=== PATIENT | male | born 1965 | race Caucasian/White ===

== ENCOUNTER 2021-09-07 09:01 | Observation (INO) | payer OTHER, SELFPAY ==
[2021-08-29 13:31] VITALS: BMI 40.4
[2021-09-05] VITALS (15 sets, daily range): BP systolic 111–166; BP diastolic 59–101; PULSE 60–96; RESP 10–18; TEMP 36.3–37.3; O2SAT 92–96; BMI 40.4
--- NOTE | 2021-09-05 06:34 | DI.RAD.S_ITS ---
PROCEDURE: XR KNEE LT 1TO2V INDICATIONS: postop prosthesis placement TECHNIQUE: 2 view(s) of the knee acquired. COMPARISON: None. FINDINGS: Bones: Patient is status post knee joint arthroplasty. Hardware components are in expected positions. Visualized bony structures are intact. Soft tissues: Overlying postoperative changes are noted. IMPRESSION: Expected immediate postoperative appearance, status post total left knee arthroplasty. Dictated by: Mendoza Zhang M.D. on 09/05/2021 at 17:12 Approved by: Mendoza Zhang M.D. on 09/05/2021 at 17:12
[2021-09-05] MEDS: VANCOMYCIN 1,000 MG/200 ML PIGGYBACK 200 MG IV (07:06)
[2021-09-05] MEDS: LACTATED RINGERS 1,000 ML 42 ML IV ×2 (07:19→09:59)
[2021-09-05] MEDS: PREGABALIN 75 MG CAPSULE PO (07:30)
[2021-09-05] MEDS: ACETAMINOPHEN 325 MG TABLET 975 MG PO (07:31)
[2021-09-05] MEDS: CELECOXIB 200 MG CAPSULE PO (07:31)
--- NOTE | 2021-09-05 07:37 | SUR.OPER ---
Supine on padded OR bed. Pillow under head, arms secured on padded armboards <90 degree abduction. Safety belt across torso. Non-operative leg secured with tape over blanket over lower leg. Operative leg secured in DeMayo/Miguel/Nathe positioner. Foam padded brace at thigh of operative leg.
--- NOTE | 2021-09-05 07:43 | PM.PREOP ---
Pre-operative Note COVID-19 COVID-19 status: Negative Interval Note History & Physical reviewed/Exam performed by Physician: Yes Changes to H&P: No
--- NOTE | 2021-09-05 07:44 | PM.OP.1 ---
Operative Date/Time/Diagnoses Date of procedure: 09/05/21 Time of procedure: 08:20 Pre-op diagnosis: Left knee posttraumatic osteoarthritis Post-op diagnosis: same Procedure & Clinicians Procedure: Left total knee arthroplasty Same procedure as scheduled: Yes Indications: The patient has had progressively worsening left knee pain with radiographic changes consistent with arthritis. Non-operative management has failed and the patient has requested total knee replacement. The risks, benefits and alternatives to surgery were discussed with the patient prior to proceeding. Risks discussed included, but were not limited to, failure to relieve pain, stiffness, infection, nerve damage, deep venous thrombosis, pulmonary embolism, stroke, coma, heart attack, permanent paralysis and , as well as the potential need for eventual revision of the prosthetic. Surgeon: Venice Weir Switching Clerk: Oneida Pratt Anesthesia Type: General and Spinal Operative Notes Findings: Severe left knee medial compartment osteoarthritis, good bone and adequate stability Closure Type: primary Specimen(s): none sent Prosthetic devices, grafts, tissues, transplants, or devices: [facility] 2 size 7 femur, size 6 tibia, +9 poly, 41 mm patella Estimated Blood Loss (mL): 250 Blood products transfused: none Tourniquet time (min): 35 Procedure in detail: The patient was seen in the pre-operative area, where the patient identified the left knee as the operative site and this was marked with my initials. The patient received pre-operative antibiotics, and was taken to the operating room and placed on the operative table in the supine position. After satisfactory anesthesia, a full time babysitter out was performed. The left leg was encircled with a tourniquet about the proximal thigh, and the leg was prepared from the toes to the tourniquet with ChloroPrep in the usual fashion and draped through sterile drapes. The leg was elevated and exsanguinated with Eschmark bandage and the tourniquet inflated to [250] mmHg pressure. The knee was approached through an approximately 18 cm incision centered over the patella and carried into the knee through a medial parapatellar arthrotomy. Tourniquet was a venous tourniquet and was deflated. A portion of the medial and lateral meniscus was resected. Soft tissue was carefully mobilized around the patella the patella was measured with a caliper. Bone was resected from the patella and the patellar height was reconstituted with up an appropriate sized patellar component. A cover was then placed on the patella. A small amount of additional medial and lateral meniscus was resected. The distal femur was cut at 5?. A [+2] cut was used. It looked like an appropriate distal femoral cut and the cut was made without difficulty. An extramedullary guide was used for the tibial cut. 10 mm was resected off the least affected side. The tibia was prepared. The rotation was assessed. The patient was placed in extension residual medial and lateral meniscus as well as any residual bone was carefully resected. [No] additional tibia was resected. Hemostasis was achieved especially posteriorly. Additional local was injected into the posterior capsule. The extension gap was assessed and additional releases for gap balancing were performed as necessary. It was checked with the gap motor grader rough grade. The femoral component was trial was placed and the notch was finished. The rotation was assessed and the appropriate size femoral guide was placed on the distal femur and finishing cuts were made. Both the balanced resection as as a measured resection were checked 3 degree external rotation measured resection appeared appropriate. There was no evidence of notching. The anterior, posterior and chamfer cuts were then made. The posterior osteophytes and soft tissues were then removed. The posterior capsule was injected with part of a mixture of 60 ml 0.25% Marcaine mixed with 20 ml Exparel for post operative pain control. The remainder of this mixture was injected into the capsule and subcutaneous tissues during cement curing. The tibial and femoral components were then placed and the knee placed through a range of motion. Range of motion was [0-130], with good stability throughout the range. The trials were then removed, and the tibia was finished. The bone was prepared with pulsatile lavage, and dried with a sponge. Cement was applied and the final prosthetics placed. Excess cement was removed during and after cement curing. A brief Betadine soak was performed. After confirming there was no extruded cement posteriorly, the final tibial insert was placed. The knee was copiously irrigated and the tourniquet deflated. Hemostasis was obtained with the Bovie cautery. A drain was placed and brought out superolaterally. The capsule was closed with interrupted nonabsorbable suture. The subcutaneous layer was closed with barbed sutures, and the skin with a running 3-0 V-Lock suture and Surgical glue. An Aquacel Ag dressing was applied and the patient was taken to recovery having tolerated the procedure well. Complications: none Post-operative Condition: stable Disposition: Acute Care Plan for aftercare: The patient will be maintained on a standard total knee replacement protocol with weight bearing as tolerated. The patient will receive aspirin and sequential compression devices for DVT prophylaxis. The patient will be discharged home when safe for the home environment.
[2021-09-05] MEDS: CEFAZOLIN 3 GM IN 0.9 % NACL 100 ML IV (08:11)
[2021-09-05] MEDS: TRANEXAMIC ACID 1,000 MG VIAL 1000 MG INJ ×2 (08:13→10:23)
[2021-09-05] MEDS: BUPIVACAINE 0.25% (PF) VIAL 30 ML INJ (08:43)
[2021-09-05] MEDS: EPINEPHrine 1 MG/ML 0.15 MG INJ (08:46)
[2021-09-05] MEDS: BUPIVACAINE LIPOSOME 266 MG/20 ML VIAL INJ (08:47)
[2021-09-05] MEDS: fentaNYL 100 MCG/2 ML INJ IV ×4 (11:02→11:44)
[2021-09-05] MEDS: HYDROMORPHONE 2 MG INJ IV ×4 (11:21→11:36)
[2021-09-05] MEDS: HYDROMORPHONE 2 MG TABLET PO ×3 (12:02→23:44)
--- NOTE | 2021-09-05 12:20 | SUR.PHASEI ---
Report given to Licha RN , pt transported to [facility] in stable condition
[2021-09-05] MEDS: IBUPROFEN 400 MG TABLET PO ×3 (12:57→20:33)
[2021-09-05] MEDS: HYDROCODONE/ACET 5/325 TABLET 2 TAB PO ×2 (12:57→17:18)
[2021-09-05] MEDS: LACTATED RINGERS 1,000 ML 100 ML IV ×2 (13:02→23:00)
--- NOTE | 2021-09-05 13:58 | PT.IIE ---
Current Diagnoses Unilateral primary osteoarthritis, left knee (09/05/21) Surgery Performed Operation Date: 09/05/21 07:45 Actual Procedures p Total Knee Arthroplasty(Left) - Venice Weir MD Medical History (Last Updated 08/29/21 @ 14:17 by Rosita Ybarra RN) Anxiety Asthma Atrial flutter Depression Diabetes Diabetic neuropathy Diverticulosis Elevated cholesterol Gout HTN (hypertension) SOFÍA on CPAP Osteoarthritis Physical Therapy Inpatient Evaluation/Re-Eval M1 PT/OT-IP Prior Functional Status Start: 09/05/21 15:22 Freq: NEEDED Status: Active Protocol: Document 09/05/21 13:58 AB (Rec: 09/05/21 15:37 AB [email or web address]) Medical Review Prior Functional Status Medical History Reviewed Yes Communication able to make needs known Mobility and Gait pt stated that he is independent with all mobiltiies and ambulation without AD Social History Household Members other Living Arrangements House Number of Floors (Floors) 3 or More Floors Number of Stairs To Enter/Railing? pt lives in a split level house in [place] has 8 steps L rail ascending to get into the entrance and from there pt has to either go up to bedroom level or down to family room: has 8 steps with L rail ascending to get to bedroom level 8 steps R rail descending to get to family room/laundry are Home Environment Standard Height Toilet,Walk in Shower,Tub/Shower Home Equipment Front Wheel Walker,Straight Cane,Crutches,Raised Toilet Seat w/Armrests,Hand Held Shower,Grab Bars In Shower Additional Social History Comment pt stated that his 85y/o dad will stay with him for a few days after surgery but will not be able to give him lift/ assist him physically pt stated that a shower chair will not fit in his walk in shower M2 PT-IP Current Condition Start: 09/05/21 15:22 Freq: NEEDED Status: Active Protocol: Document 09/05/21 13:58 AB (Rec: 09/05/21 15:37 AB [email or web address]) Physical Therapy Current Condition Current Condition Evaluation Date 09/05/21 Treatment Diagnosis s/p L TKA; difficulty in walking Onset Date 09/05/21 Weight Bearing Status Weight Bearing Status Weight Bear as Tolerated Allowed Weight Bearing Amount (enter % LLE WBAT or #) (%) M3 PT-IP Subjective Start: 09/05/21 15:22 Freq: NEEDED Status: Active Protocol: Document 09/05/21 13:58 AB (Rec: 09/05/21 15:37 AB [email or web address]) Subjective Physical Therapy Visit Type Type Initial Evaluation Visit Start Time 13:58 Visit Stop Time 14:48 Total Visit Minutes 50 Number of REPLENISHER Visits 0 Physical Therapy Visit Comments Patient Comments agreeable to do PT Therapy Pain Assessment Pain When Pain Assessed At Rest Pain Present Pain Present Pain Reported Location Left Knee Intensity 6 Scale Used increased to 7/10 with mobility Pain Management Techniques Apply Cold,Distraction, Modification of Treatment,Re- positioning,Timing of Activity with Medications M4 PT-IP Mobility and Gait Start: 09/05/21 15:22 Freq: NEEDED Status: Active Protocol: Document 09/05/21 13:58 AB (Rec: 09/05/21 15:37 [email or web address]) PT-Bed Mobility Assessment Supine to Sit Supine to Sit Standby Assistance PT-Transfer Assessment Sit to and From Stand Sit to and from Stand Minimal Assistance,1 Person Assistance,Use of Upper Extremities Equipment Transfer Assistive Device Gait Belt,Front Wheeled Walker Orthotic/Prosthetic Devices or Brace: No Transfers Transfer Destination Chair Transfer Technique ambulated Transfer Ability Level of Assist Minimal Assistance,1 Person Assistance,Use of Upper Extremities Comments Mobility Comments BP in supine: 131/76. pt completed supine to sit SBA and was able to sit on EOB SBA . c/o slight dizziness and sweatiness. BP checked: 150/ 95. completed sit to stand min A and ambulated in room using FWW min A and cues for L quads activation. agreed to sit on chair. positioned on chair. call light and table placed within reach. Gait Assessment Gait Gait Assistance Required: Minimum Assistance Distance (Feet) 30 Able to Maintain Weight Bearing Status Yes During Gait Assistive Devices Assistive Device Gait Belt,Front Wheeled Walker Orthotic/Prosthetic Devices or Brace: No Gait Deviations General Gait Pattern Antalgic,Decreased Stride Length,Decreased Feet Clearance Factors Limiting Gait Function Factors Limiting Gait Function Decreased Activity Tolerance, Decreased Sensation,Decreased Strength,Limited Range of Motion,Pain Comments Gait Comments pls refer to mobility section for details PT-Balance Assessment Sitting Balance and Reactions Static Sitting Balance Ability Good Dynamic Sitting Balance Ability Good Standing Balance and Reactions Static Standing Balance Ability Fair Dynamic Standing Balance Ability Fair Device Used FWW M5 PT-IP Objective Assessments Start: 09/05/21 15:22 Freq: NEEDED Status: Active Protocol: Document 09/05/21 13:58 AB (Rec: 09/05/21 15:37 AB [email or web address]) Orientation Orientation/Cognition Level of Alertness Alert Orientation Name,Place,Situation Safety Awareness Decreased Safety Awareness Gross Range of Motion Lower Extremity ROM Impairments L knee flexion: ~ 60 deg L knee extension: ~ 10 deg less to 0 Strength Lower Extremity Strength Assessment Left Impaired Knee 3+/5 Sensation Assessment Sensation Gross Sensation Right LE Impaired,Left LE Impaired Sensation Description Numbness Comments Sensation Comments stated that he has chronic neuropathy on B feet Muscle Tone Muscle Tone WNL Yes M6 PT-IP Treatment Start: 09/05/21 15:22 Freq: NEEDED Status: Active Protocol: Document 09/05/21 13:58 AB (Rec: 09/05/21 15:37 [email or web address]) Physical Therapy Treatment Education Education Provided Precautions,Weight Bearing Status,Post-Op Packet,Safety M7 PT-IP Assessment and Plan Start: 09/05/21 15:22 Freq: NEEDED Status: Active Protocol: Document 09/05/21 13:58 AB (Rec: 09/05/21 15:37 [email or web address]) PT Summary Assessment and Plan Potential Rehabilitation Potential Good Status of Condition at Evaluation Evolving Summary Impairments Pain,ROM,Strength,Balance, Coordination,Sensation,Tone, Cognition,Bed Mobility, Transfers,Gait,Activity Tolerance Assessment Summary pt s/p L TKA POD 0 and requires min A with transfers and ambulation. pt will likely progress during hospital stay but has limited assistance at home. will continue to assess progress for safe d/c plan. pt stated that he plans to have homehealth services upon d/c but has not set up for one yet . Goals Bed Mobility Goal Independent Transfer Goal Independent,Front Wheeled Walker Gait Goal Independent,Front Wheel Walker Gait Distance 150 Other Goals up/down 8+8 steps L rail ascending SBA Days to Meet Goals 5 Frequency of Treatment Frequency Of Treatment Twice a Day Treatment Plan Physical Therapy Treatment Plan Bed Mobility Training,Transfer Training,Gait Training, Therapeutic Exercise,Balance Retraining,Post Op Education, Discharge Planning,Hot or Cold Pack,Neuromuscular Re-ed, Coordination Retraining,Manual Therapy Other Recommendations and Next Treatment ambulation, stair climbing Focus Precautions Other Precautions LLE WBAT Recommendations To Nursing Amount of Assist Needed 1 Person Assist Discharge Recommendations PT Discharge Recommendations Home with Assistance,Home Health Transportation Needs at Discharge Private Vehicle
[2021-09-05] MEDS: ACETAMINOPHEN 325 MG TABLET 650 MG PO ×2 (14:44→20:34)
[2021-09-05] MEDS: PREGABALIN 50 MG CAPSULE 200 MG PO ×2 (14:45→20:34)
[2021-09-05] MEDS: CEFAZOLIN 1 GM VIAL 2 GM IV ×2 (15:37→23:45)
[2021-09-05] MEDS: DOCUSATE 100 MG CAPSULE PO (20:33)
[2021-09-05] MEDS: AMLODIPINE 5 MG TABLET 10 MG PO (20:33)
[2021-09-05] MEDS: ASPIRIN EC 81 MG TABLET PO (20:34)
[2021-09-05] MEDS: METFORMIN HCL 500 MG TABLET 1000 MG PO (20:34)
[2021-09-05] MEDS: INSULIN GLARGINE 100 UNIT/ML 3ML PEN 35 UNIT SUBCUT (20:46)
[2021-09-06] VITALS (7 sets, daily range): BP systolic 139–148; BP diastolic 73–98; PULSE 83–106; RESP 14–19; TEMP 36.1–36.9; O2SAT 94–95
[2021-09-06] MEDS: IBUPROFEN 400 MG TABLET PO ×6 (01:00→21:22)
--- NOTE | 2021-09-06 01:25 | PC.NURSE ---
Addendum entered by Dinorah Lutz R.N. 09/06/21 05:24: Medicated earlier with po Dilaudid but pain still not controlled and remains at 8/10 so medicated with Vicodin but could only give 1 tab as otherwise would have been over the maximum allowed Tylenol in a 24h period. Original Note: Patient is alert and oriented with some level of anxiety present. Breath sounds with expiratory wheezes in bilateral upper/middle lobes; RA sat is 94%. Discussed importance of using incentive spirometer and patient verbalizes understanding. Using home CPAP for sleep. HRR. BP trending high intermittently and was 141/69 at time of assessment. Denied nausea. BT present and is passing flatus. Denies dysuria, frequency or urgency with urination; using urinal. Is able to turn himself in bed. Up to bathroom with walker and 1 assist but unable to have BM. Aquacel dressing to left knee is CDI; covered with zahra wrap. Complained of 7/10 knee/thigh/buttock pain and was medicated with Dilaudid earlier and then scheduled Ibuprofen; feels the Vicodin works better so will switch back with next pain medication administration. Has chronic bilateral foot neuropathy left > right. Unable to lift leg off bed tonight but states he was able to lift it when seen earlier by PT. Wearing bilateral calf SCD's. Fall risk score is high and bed alarm is activated.
[2021-09-06] MEDS: HYDROMORPHONE 2 MG TABLET PO ×5 (04:00→23:27)
[2021-09-06] MEDS: HYDROCODONE/ACET 5/325 TABLET 2 TAB PO ×2 (05:14→09:06)
[2021-09-06 05:58] LABS: Hematocrit 31.6 % (41-53); Hemoglobin 10.7 g/dL (13.5-17.5)
[2021-09-06] MEDS: PREGABALIN 50 MG CAPSULE 200 MG PO ×3 (08:11→21:21)
[2021-09-06] MEDS: METFORMIN HCL 500 MG TABLET 1000 MG PO ×2 (08:12→21:21)
[2021-09-06] MEDS: ASPIRIN EC 81 MG TABLET PO ×2 (08:14→21:21)
--- NOTE | 2021-09-06 08:17 | P.DS_ITS ---
History of Present Illness History of Present Illness Date Patient Seen: 09/06/21 Time Patient Seen: 08:17 Chief complaint: Left knee pain status post left TKA Narrative: The patient is complaining of moderate to severe pain this morning. He has been using Dilaudid and [place] in addition to OTC Tylenol and ibuprofen for pain. He denies fevers, chills, night sweats. No new numbness or tingling, other than than his baseline peripheral neuropathy, which is worse in the left as compared to the right. He has had a little nausea and vomiting, but these are mostly resolving. Discharge Providers Provider Discharge Date: 09/06/21 Consults: 09/05/21 06:34 Consult to Anesthesiology Routine Comment: Consulting Provider: Anesthesiologist Reason for consultation: Regional block for post operative pain control 09/05/21 07:17 Consult to Respiratory Therapy Evaluate & Treat Comment: Physician Instructions: Evaluate and treat 09/05/21 12:35 Consult to Discharge Planning Routine Comment: Consult to Physical Therapy Evaluate & Treat Comment: Physician Instructions: postop TKA protocol Consult to Respiratory Therapy Evaluate & Treat Comment: Physician Instructions: Evaluate and treat Discharge provider: Oneida Pratt PA-C Summary Hospital Course Discharge Diagnosis: Left knee posttraumatic arthritis Hospital Course: Procedure: Left total knee arthroplasty Same procedure as scheduled: Yes Indications: The patient has had progressively worsening left knee pain with radiographic changes consistent with arthritis. Non-operative management has failed and the patient has requested total knee replacement. The risks, benefits and alternatives to surgery were discussed with the patient prior to proceeding. Risks discussed included, but were not limited to, failure to relieve pain, stiffness, infection, nerve damage, deep venous thrombosis, pulmonary embolism, stroke, coma, heart attack, permanent paralysis and , as well as the potential need for eventual revision of the prosthetic. Surgeon: Venice Weir Ambulatory Service Representative: Oneida Pratt Anesthesia Type: General and Spinal Operative Notes Findings: Severe left knee medial compartment osteoarthritis, good bone and adequate stability Closure Type: primary Specimen(s): none sent Prosthetic devices, grafts, tissues, transplants, or devices: [employer] BCS 2 size 7 femur, size 6 tibia, +9 poly, 41 mm patella Estimated Blood Loss (mL): 250 Blood products transfused: none Tourniquet time (min): 35 Status at Discharge Cognitive/behavioral status at discharge: oriented Functional status at discharge: uses cane/walker Overall status at discharge: patient is progressing back to baseline Exam Vital Signs (past 8 hours): - 09/06/21 04:07 Temperature 97.5 F L Pulse Rate 87 Respiratory Rate 18 Blood Pressure 140/89 Pulse Oximetry 95 Oxygen Delivery Method Room Air,CPAP Oxygen Flow Rate 0 Narrative Exam Narrative: 56-year-old male, resting comfortably in bed, no acute distress. Bilateral motor functions are intact in bilateral lower extremities. Sensation is decreased in his left lower extremity as compared to his right, which he notes is his baseline. Bilateral calves are soft, nontender to palpation. Incision is clean, dry, intact. Objective Labs Result Diagrams: 09/06/21 05:13 Labs: Laboratory Results - last 24 hr 09/06/21 05:13 Hgb 10.7 L Hct 31.6 L PFSH Medical History Anxiety Asthma Atrial flutter Depression Diabetes Diabetic neuropathy Diverticulosis Elevated cholesterol Gout HTN (hypertension) SOFÍA on CPAP Osteoarthritis Surgical History H/O cardiac radiofrequency ablation (06/13/21) Hx of arthroscopy of left knee Hx of arthroscopy of right knee Hx of arthroscopy of shoulder S/p bilateral carpal tunnel release S/P cubital tunnel release Social History household members: other Smoking Status: Former smoker alcohol intake: former Discharge Assessment & Plan Assessment and Plan Assessment: Stable status post left total knee arthroplasty Plan of Treatment: -pain control. The patient has been eating p.o. Dilaudid plus p.o. [place], in addition to Tylenol and ibuprofen. -mobilize with PT. Weightbearing as tolerated with front wheel walker -aspirin 81 mg twice daily x6 weeks for DVT prophylaxis -follow-up with Dr. Weir in 10-14 days for postoperative visit -likely DC home today, if cleared by PT and better pain control. Discharge Plan Discharge Plan Patient Disposition: Home Discharge orders & Medications Discharge Orders: Discharge (Order); Ordered 09/06/21 Ordered By: Oneida Pratt Prescriptions: New acetaminophen 500 mg capsule 500 mg PO Q4H MDD Max 6 tabs per day PRN (Reason: pain) Qty: 90 RF: 0 aspirin 81 mg Tablet,Delayed Release (Dr/Ec) 81 mg PO BID PRN (Reason: X6 weeks to prevent blood clots) Qty: 90 RF: 0 docusate sodium 100 mg Capsule 100 mg PO BID PRN (Reason: constipation) Qty: 20 RF: 0 hydrocodone-acetaminophen 5-325 mg Tablet See Rx Instructions .ROUTE .COMPLEX MDD Max acetaminophen 3000 mg/day PRN (Reason: Pain, Severe (7-10)) Qty: 42 RF: 0 hydromorphone 2 mg Tablet 2 mg PO Q4H PRN (Reason: Pain, Severe (7-10)) Qty: 42 RF: 0 ibuprofen 400 mg Tablet 400 mg PO Q4HR MDD Max 6 tabs per day PRN (Reason: Pain/inflammation) Qty: 90 RF: 0 Continued metformin 1,000 mg Tablet 1,000 mg PO BID RF: 0 albuterol sulfate 90 mcg/actuation Hfa Aerosol Inhaler 2 puff INHALATION Q6H PRN (Reason: Shortness Of Breath) RF: 0 pregabalin 200 mg Capsule 200 mg PO TID RF: 0 amlodipine-benazepril 10-40 mg Capsule 1 cap PO BEDTIME RF: 0 Lantus Solostar U-100 Insulin 100 unit/mL (3 mL) Insulin Pen 35 unit SUBCUT BEDTIME RF: 0 Discontinued acetaminophen 500 mg Tablet 1,000 mg PO QD-BID PRN (Reason: Pain) RF: 0 Follow up/Referrals: Venice Weir MD [Physician] - (10-14 days for postoperative visit) Diet/Activity/Treatments Diet: Diet as Tolerated and Regular Activity: -weight-bearing as tolerated with front wheel walker -continue with home exercises as directed by your physical therapist Cold/Heat Therapy: -use ice as needed for pain Other treatments: -aspirin 81 mg twice daily x6 weeks to prevent blood clots -use Tylenol and ibuprofen every 4 hours for pain -Use [place] 5/3 25 1-2 tablets for [id number] pain -Dilaudid 2 mg every 4 hours as needed for moderate to severe pain -use OTC constipation meds as needed with narcotic pain meds -max Tylenol (acetaminophen) 3000 mg per day from all sources, Tylenol OTC and 325 mg in [place] Skin/Wound/Dressing Care Report to your healthcare provider any signs of infection, such as:: chills, fever, night sweats, unusual drainage and unusual redness Dressing: -okay to remove Jose wrap after 48 hours from surgery -okay to shower after Jose wrap firs removed -keep dressing in place until postoperative visit -contact the office if his dressing becomes wet, soiled, saturated Visit Report/Discharge Packet Instructions: DI for Knee Replacement Stand Alone Forms: Surgery Discharge Discharge Data Attending Provider: Venice Weir VTE Deep Vein Thrombosis/Pulmonary Embolism Present on Admission: No
--- NOTE | 2021-09-06 09:41 | CM.DANOTE ---
Addendum entered by DEAN Gill 09/06/21 15:35: ADD: RN states she is working to get senthil of Tegan SHEN to have pt's scripts efaxed to a different pharmacy. Pt is ready for d/c and father bedside to provide transport and they are hoping to d/c before dark. TAYLOR called Allison at [facility] to inquire about their checking on pt's insurance for coverage and she states she has not gotten an answer from billing yet and will call them again now. TAYLOR updated RN and awaiting to hear back from [facility]. BF Addendum entered by DEAN Gill 09/06/21 12:44: ADD: Per FLAME CUTTING MACHINE OPERATOR and RN, pt ambulated quite well and was able to complete 16 stairs and recommend safe d/c home with father to stay and HH. TAYLOR called [facility], [facility], [facility], [facility] and none are contracted with [facility]. TAYLOR called [facility] based on Vendor Calendar and confirmed they cover [facility] and can take [facility] on case by case depending on coverage and willing to run his insurance and aware pt may d/c home today vs tomorrow. BROOKLYNN Mejía kindly faxed referral for review and coverage. TAYLOR also provided pt's claim # and contact for Cyndy NADIYA Arellano to [facility]. TAYLOR met bedside with pt and father and confirmed pt feels safe plan of home with father and HH now and also that he just called and updated his insurance CM Eileen as well. TAYLOR provided brochure for [facility] and discussed they were checking to confirm his coverage. Per RN, attempting different pain medication now to determine good pain management coverage for d/c to home to determine if he is safe for d/c home this evening. TAYLOR faxed completed F2F and MD orders to [facility] as well and will await confirmation they can accept him. BF Original Note: Patient is a 56 yo male who was admitted on 09/05/21 for LTKA. Pt has CYNDY for insurance and his PCP is Mani Johnson. EMR was reviewed. Per Tegan SHEN, pt tolerated procedure well but having some pain management issues and to work with PT today towards determining if stable for d/c home with HH vs SNF. TAYLOR met bedside with pt and explained role and pt confirms he lives at home in [place] alone and is independent with ADL's at baseline. Father lives in [place] and is in his 80's for age and plans to stay with pt for a week after d/c but unable to provide physical assist. Pt has 16 stairs to enter and is quite concerned with d/c home. SW discussed possible options of home with HH vs SNF and need to determine [facility] contracted facilities and agencies. Pt states he has been in contact prior to surgery with his [facility] RN casemanager (Eileen [phone]) and discussing his coverage. Eileen at [facility] told pt he qualifies for 40 hours in-home assist and could get HH or SNF as well. Pt agreeable with SW contacting BROOKE HEARN with his insurance to help determine d/c plan and authorization for plan. Pt also states he qualifies for medical transport at d/c through [facility] as well?? SW called Eileen COX CM at [facility] at above number and left detailed msg requesting call back with their fax number for [facility] and contracted HH and SNF agencies around [place]. Pt's father arrived bedside as well and confirms he is staying in a hotel in [place] and awaiting d/c from the hospital in order to stay with pt as long as needed. Plan: SW to follow closely for PT assessment today towards determining HH vs SNF at d/c. DEAN Gill Discharge Planning/Care Management CM Discharge Assessment Start: 09/06/21 09:38 Freq: Status: Active Protocol: Document 09/06/21 09:38 BF (Rec: 09/06/21 09:41 [id number]) Discharge Planning Assessment Assigned Jigsaw Operator DEAN Cedillo DPOA/Assigned Designee Name none, informally father Advance Directives? No Advance Directives on File No History Provided By Patient,Family Member,Medical Record Has Patient been admitted in last 30 No days? Prior Living Arrangements House Household Members none Type of transporation used prior to Drives own vehicle admit Independent with ADL's Yes Is patient alert and oriented? Yes Caregiver for Another No Community Services used prior to Physical Therapy admission: Patient/Family Preference [facility] Facility,Home with Home Health Comment SNF vs HH pending progress with PT Barriers to Discharge Yes Comment pain mnmgt issues, obesity Discharge Plan Home with Home Health Community Services Physical Therapy,Home Health Nurse Transportation Arrangement father is bedside but pt states he has insurance medical transport for d/c transport Referrals Initiated [facility],Home Health Additional Comment Pending return call from pt's assigned RN NADIYA with [facility] insurance [phone] Medicare Choice List Provided Yes SNF/HH Preference [facility] facilities near [facility] Updated in Patient Room with Yes name and ext. # of Jigsaw Operator Review Status In Process Please Provide Date Initial DC 09/06/21 Assessment Was Performed Next Review Type Continued Stay Review Pre-Anesthesia Assessment Start: 08/29/21 13:31 Freq: Status: Complete Protocol: Document 08/29/21 13:31 CAB (Rec: 08/29/21 14:35 CAB [id number]) Pre-Anesthesia Assessment Preferred Name Patrick Patient Information Reviewed Via Chart Review Comment Labs/EKG done per pt, not here , COVID screen 09/02/21 @ [place] Primary Care Provider Jimbo Seen Specialist in Last 12 Months Yes Specialist Seen Shot Peen Operator,Orthopedist, Analog Circuit Designer,Other Primary Language [place] District Medical Examiner Required No Height 180.34 cm Weight 131.542 kg Body Mass Index (BMI) 40.4 Hearing Ability Normal Visual Assist Glasses Dentition Type Teeth, Natural Present,Teeth, Broken Barriers to Learning None Hx Anesthesia Reactions No Hx Family Anesthesia Reaction No Hx Malignant Hyperthermia No Hx Blood Transfusions No Anesthesia Review Requested No alcohol intake former Alcohol Intake Frequency Other: Hx of ETOH disorder, sober Dec 31, 2020 Smoking Status Former smoker Tobacco type cigarettes,smokeless tobacco how long ago did patient quit smoking Quit smoking approx 3 years ago, currently chews tobacco Substance Use Type does not use Pain Present Pain Reported Musculoskeletal Symptoms Abnormal Gait,Difficulty Walking,Joint Pain,Numbness, Tingling History of Falling (Recent or History of No ) Patient is completely paralyzed or No completely immobile Mental Status Oriented to own ability Comment Balance issues r/t pain, diabetic neuropathy Is patient on oxygen? No Does patient have MCINTYRE/SOB Yes: r/t asthma, weight Hx Sleep Apnea Yes CPAP/BIPAP use prescribed and used routinely Will Bring CPAP/BIPAP DOS Yes Currently Taking a Beta Rosemary No Can You Climb a Flight of Stairs Without No SOB Hx Chest Pain No Hx SOB Yes: r/t asthma, weight Hx Syncope or Dizziness No Anti-Coagulant Therapy No: Stopped Xarelto 2 weeks s/ p cardiac ablation Has a Shot Peen Operator Yes: Dr. Uribe Cardiac Testing Yes: Cardiac ablation 06/13/21 Hx Pacemaker/ICD No Pacemaker Rep Required? 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 Received a COVID vaccine? Yes Received all doses? Yes Marital Status Lives With other Prior Living Arrangements House Number of Floors (Floors) Two Floors Number of Stairs To Enter/Railing? Lives with roommate Does the Patient Have Assistance After Yes: Homehealth to be set-up Surgery Patient Discharge Plan Description Return Home Comment Pt advised overnight length of stay per surgeon Feels Safe in Current Environment Yes Been Physically Hurt or Threatened By a No Person in Current Environment Do you have thoughts of harming yourself None or others? Are you currently considering suicide? No Do you have a plan to hurt yourself or No Plan others? Do You Have Any Spiritual Beliefs That No May Affect Your HC Choices? Do You Have Any Cultural Practices That No May Affect Your HC Choices? Who Can We Speak to About Patient's Care Family, friends Identifying Code for Release of Patient Declines to issue Information Health Care Proxy/Next of Kin Maximus Toribio) Health Care Proxy Emergency Contact Name Maximus Toribio) Emergency Contact Advance Directives? No Power of Tripper No PAC Instructions Bring CPAP/BIPAP,Diabetes instructions,Durable medical equipment,Medications to take/ avoid,Nasal antibiotic,No ETOH /petroleum product on skin DOS ,NPO,Sturdy shoes/comfortable clothes,Do not bring valuables and remove jewelry
--- NOTE | 2021-09-06 10:08 | PC.NURSE ---
Addendum entered by Briana Jeter R.N. 09/06/21 15:40: 1445-Call into [facility], cancelled Erx of Dilaudid and of NOrco that were sent this AM, so they can be filled locally, per Pt request. being set up with [facility], waiting on auth for insurance. UPdate to OR room 3 for Oneida SHEN, in porcedure and will be another hour. Update given to patient, who remains frustrated as he has been ready to d/c for hours, but needs appropriate pain control post op. DC teaching done with pain control and last doses. Await call back. Update provided to oncoming BROOKE Glover. Addendum entered by Briana Jeter R.N. 09/06/21 15:00: No update to d/c orders, fax sent to Oneida Pratt about updating pain meds, complicated as she is currently in a case in OR. Patient is eager to d/c out of hospital but cant without pain control. Await orders Addendum entered by Briana Jeter R.N. 09/06/21 13:58: Pt doing well with oxycodone 10, break though Po dilaudid. No increased itching. no nausea. Father awaiting d/c and drive [facility]. AC rounding. Addendum entered by Briana Jeter R.N. 09/06/21 11:43: Call into Cornell SHEN re uncontrolled pain, discussed pain control options, and reported adverse effects from previous oxycodone use. Will trial ooxycodone for pain control with PRN nausea/itching. This will prevent the APAP max out. Recheck with patient in 1 hr. Original Note: AM shift Pt up to chair for meal . Pain is not controlled this AM. [place] and dilaudid on board with 8/10 pain remaining. PT planned for after meal and Pt is struggling to get to [facility]. Feels unsure about d/c plan today.
--- NOTE | 2021-09-06 11:15 | PT.IPTN ---
Current Diagnoses Unilateral primary osteoarthritis, left knee (09/05/21) Surgery Performed Operation Date: 09/05/21 07:45 Actual Procedures p Total Knee Arthroplasty(Left) - Venice Weir MD Physical Therapy Treatment Note M2 PT-IP Current Condition Start: 09/05/21 15:22 Freq: NEEDED Status: Active Protocol: Document 09/05/21 13:58 AB (Rec: 09/05/21 15:37 AB [id number]) Physical Therapy Current Condition Current Condition Evaluation Date 09/05/21 Treatment Diagnosis s/p L TKA; difficulty in walking Onset Date 09/05/21 Weight Bearing Status Weight Bearing Status Weight Bear as Tolerated Allowed Weight Bearing Amount (enter % LLE WBAT or #) (%) M3 PT-IP Subjective Start: 09/05/21 15:22 Freq: NEEDED Status: Active Protocol: Document 09/06/21 10:25 SP (Rec: 09/06/21 13:05 SP [id number]) Subjective Physical Therapy Visit Type Type Treatment Note Visit Start Time 10:25 Visit Stop Time 11:15 Total Visit Minutes 50 Notes Father in room, completed caregiver training and physical assist CGA required throughout tx. Vitals taken during tx: seated in chair: 145/77 HR 91 SaO2 94% on RA. Number of CAR PINCHER Visits 1 Physical Therapy Visit Comments Patient Comments agreeable to do PT Patient Goals return home with father to assist hime as needed, HHPT perferred Therapy Pain Assessment Pain When Pain Assessed During Mobility Pain Present Pain Present Reassessed Location Left Knee Intensity 5 Scale Used Numeric (0 - 10) Description Tightness,With Movement Pain Behaviors Facial Grimacing Pain Management Techniques Apply Cold,Distraction, Modification of Treatment,Re- positioning,Timing of Activity with Medications M4 PT-IP Mobility and Gait Start: 09/05/21 15:22 Freq: NEEDED Status: Active Protocol: Document 09/06/21 10:25 SP (Rec: 09/06/21 13:05 SP [id number]) PT-Bed Mobility Assessment Supine to Sit Supine to Sit Standby Assistance Sit to Supine Sit to Supine Standby Assistance,Bedrails Scooting Scooting to Edge of Bed Standby Assistance PT-Transfer Assessment Sit to and From Stand Sit to and from Stand Standby Assistance,Contact Guard Assistance,Use of Upper Extremities Equipment Transfer Assistive Device Gait Belt,Front Wheeled Walker Orthotic/Prosthetic Devices or Brace: No Transfers Transfer Destination Bed,Chair,Wheelchair Transfer Technique ambulated using FWW Transfer Ability Level of Assist Standby Assistance,Contact Guard Assistance,Use of Upper Extremities Comments Mobility Comments Pt seated in chair when arrived. Father donned gait belt. Sit>stand CGA initially using fWW. Ambulated further distance into hallway CGA> SBA 20 ft, SPT back to chair >sit into chair SBA with use of BUE. Pt wheeled down to stairs . Completed stairs L or R HR and SPC in opposite UE, cued x1 for ascend RLE and descend LLE with good step to patterning, CGA w/ initial support for stabilizing SPC then able to stabilize self 3 stairs x6 sets consecutively stable, no LOB, to assimulate 16 stairs at home. Educated can sit on bench/ chair after 8 on split level at home if wish for rest break. Pt walked further back to room, cued for L knee flexion heel toe with improved gait phases, no w/c follow required 110 ft. stand>sit on bed >supine SBA with use of gait belt after instruction needed on LLE for self assist onto bed. Reviewed post op ex: quad set, SLR w/ gait belt, SAQ, hip abd w/ GB, heels slide AAROM, AAROM approx 70 deg L knee flexion able to tolerate. supine>sit w / use of gait belt on LLE, sit >stand sBA. Ambulated usign FWW to bathroom, complete voiding self in standign stable distance SBA, no LOB pivot turn and gait to sink, balance wash hands without UE support SBA, returned to chair approx 20 ft using fWW total in room. Pt is ok to return home with father to assist him when medically cleared. Pt stated was alot of effort for stair mgt, CAR PINCHER recommending and patient in agreement HHPT at [place] to improve strength and endurance before returns to outpt therapy. Gait Assessment Gait Gait Assistance Required: Standby Assistance,Contact Guard Assist Distance (Feet) 110 Able to Maintain Weight Bearing Status Yes During Gait Assistive Devices Assistive Device Gait Belt,Front Wheeled Walker Orthotic/Prosthetic Devices or Brace: No Gait Deviations General Gait Pattern Antalgic,Decreased Stride Length,Decreased Feet Clearance Factors Limiting Gait Function Factors Limiting Gait Function Decreased Activity Tolerance, Decreased Sensation,Decreased Strength,Limited Range of Motion,Pain Comments Gait Comments see mobility comments. Stair Climbing Assessment Evaluation Level of Assist On Stairs Contact Guard Assistance,1 Person Assistance Devices Stair Climbing Assistive Devices Straight Cane,Left Railing, Right Railing Technique/Endurance Stair Climbing Direction Ascend and Descend Stair Climbing Technique Step to Step Number of Steps Climbed 3 Stair Climbing Set # Repetitions (reps) 6 Comments Stair Climbing Comments see mobility comments PT-Balance Assessment Sitting Balance and Reactions Static Sitting Balance Ability Normal Dynamic Sitting Balance Ability Normal Standing Balance and Reactions Static Standing Balance Ability Good Dynamic Standing Balance Ability Fair Device Used FWW M5 PT-IP Objective Assessments Start: 09/05/21 15:22 Freq: NEEDED Status: Active Protocol: Document 09/05/21 13:58 AB (Rec: 09/05/21 15:37 AB [id number]) Orientation Orientation/Cognition Level of Alertness Alert Orientation Name,Place,Situation Safety Awareness Decreased Safety Awareness Gross Range of Motion Lower Extremity ROM Impairments L knee flexion: ~ 60 deg L knee extension: ~ 10 deg less to 0 Strength Lower Extremity Strength Assessment Left Impaired Knee 3+/5 Sensation Assessment Sensation Gross Sensation Right LE Impaired,Left LE Impaired Sensation Description Numbness Comments Sensation Comments stated that he has chronic neuropathy on B feet Muscle Tone Muscle Tone WNL Yes M6 PT-IP Treatment Start: 09/05/21 15:22 Freq: NEEDED Status: Active Protocol: Document 09/06/21 10:25 SP (Rec: 09/06/21 13:05 SP [id number]) Physical Therapy Treatment Education Education Provided Precautions,Weight Bearing Status,Post-Op Packet,Safety M7 PT-IP Assessment and Plan Start: 09/05/21 15:22 Freq: NEEDED Status: Active Protocol: Document 09/06/21 10:25 SP (Rec: 09/06/21 13:05 SP [id number]) PT Summary Assessment and Plan Potential Rehabilitation Potential Good Status of Condition at Evaluation Evolving Summary Impairments Pain,ROM,Strength,Balance, Coordination,Sensation,Tone, Cognition,Bed Mobility, Transfers,Gait,Activity Tolerance Progress Towards Goals Progressing Toward Goals,Slow Progress due to Pain,Slow Progress due to Activity Tolerance Assessment Summary Pt required CG> SBA during all mobility w/ FWW, progressed to SBA. Stair mgt SBA w 1 rail and SPC due to wide rails. Pt is ok to return home with father to assist him as needed . CAR PINCHER recommending HHPT for improved strengthening and functional mobiltiy initially at [place] due to increased effort on stairs CGA, patient in agreement HHPT before returns to outpt therapy. Goals Bed Mobility Goal Independent Transfer Goal Independent,Front Wheeled Walker Gait Goal Independent,Front Wheel Walker Gait Distance 150 Other Goals up/down 8+8 steps L rail ascending SBA Days to Meet Goals 5 Frequency of Treatment Frequency Of Treatment Twice a Day Treatment Plan Physical Therapy Treatment Plan Bed Mobility Training,Transfer Training,Gait Training, Therapeutic Exercise,Balance Retraining,Post Op Education, Discharge Planning,Hot or Cold Pack,Neuromuscular Re-ed, Coordination Retraining,Manual Therapy Other Recommendations and Next Treatment ambulation further distance, Focus LE exercises Precautions Other Precautions LLE WBAT Recommendations To Nursing Amount of Assist Needed 1 Person Assist Discharge Recommendations PT Discharge Recommendations Home with Assistance,Home Health Transportation Needs at Discharge Private Vehicle
[2021-09-06] MEDS: OXYCODONE IR 5 MG TABLET 10 MG PO ×4 (11:28→21:28)
[2021-09-06] MEDS: diphenhydrAMINE 25 MG TABLET PO (11:29)
[2021-09-06] MEDS: DOCUSATE 100 MG CAPSULE PO ×2 (11:29→21:22)
--- NOTE | 2021-09-06 12:35 | CM.DPNOTE ---
Faxed initial referral packet to Alissa Cedillo and received fax conf. Kym Valentin CM Asst.
--- NOTE | 2021-09-06 14:07 | PT.IPTN ---
Current Diagnoses Unilateral primary osteoarthritis, left knee (09/05/21) Surgery Performed Operation Date: 09/05/21 07:45 Actual Procedures p Total Knee Arthroplasty(Left) - Venice Weir MD Physical Therapy Treatment Note M2 PT-IP Current Condition Start: 09/05/21 15:22 Freq: NEEDED Status: Active Protocol: Document 09/05/21 13:58 AB (Rec: 09/05/21 15:37 AB [id number]) Physical Therapy Current Condition Current Condition Evaluation Date 09/05/21 Treatment Diagnosis s/p L TKA; difficulty in walking Onset Date 09/05/21 Weight Bearing Status Weight Bearing Status Weight Bear as Tolerated Allowed Weight Bearing Amount (enter % LLE WBAT or #) (%) M3 PT-IP Subjective Start: 09/05/21 15:22 Freq: NEEDED Status: Active Protocol: Document 09/06/21 13:52 SP (Rec: 09/06/21 15:16 SP [id number]) Subjective Physical Therapy Visit Type Type Treatment Note Visit Start Time 13:52 Visit Stop Time 14:07 Total Visit Minutes 15 Notes Father in room observed tx. Number of FURNITURE CLEANER Visits 2 Physical Therapy Visit Comments Patient Comments Pt agreeable to working with therapy around in room. He states just premedicated 30 min prior to assist with increased pain but not take affect yet. Patient Goals return home with father to assist hime as needed, HHPT perferred Therapy Pain Assessment Pain When Pain Assessed During Mobility Pain Present Pain Present Pain Reported Location Left Knee Intensity 8 Scale Used Numeric (0 - 10) Description Aching,Pressure,Tightness,With Movement Pain Behaviors Facial Grimacing Pain Management Techniques Apply Cold,Distraction, Elevation,Modification of Treatment,Re-positioning, Timing of Activity with Medications M4 PT-IP Mobility and Gait Start: 09/05/21 15:22 Freq: NEEDED Status: Active Protocol: Document 09/06/21 13:52 SP (Rec: 09/06/21 15:16 SP [id number]) PT-Bed Mobility Assessment Sit to Supine Sit to Supine Standby Assistance,Bedrails PT-Transfer Assessment Sit to and From Stand Sit to and from Stand Standby Assistance,Use of Upper Extremities Equipment Transfer Assistive Device Gait Belt,Front Wheeled Walker Orthotic/Prosthetic Devices or Brace: No Transfers Transfer Destination Bed Transfer Technique ambulated using FWW Transfer Ability Level of Assist Standby Assistance,Use of Upper Extremities Comments Mobility Comments Pt seated in chair when arrived. Pt stated went to the bathroom recently and still having more pain and nursing medicated 30 min prior to arrival. Sit>stand SBA using BUE and transition to FWW, decreased WB into LLE initially. Ambulated 2 laps around room approx 60 ft using fWW, cues for L knee flexion during swing phase, quad facilitation into knee extension to prepare heel strike and awareness of quad facilitation midstance gait phase with what needs for support, demonstrates 30-50% WB into LLE rest through BUE on fWW, improve L knee extension stability as gait distance progressed. stand>sit at EOB SBA with cue x1 for reaching back slow descent w/ LLE positioned out front. Pt performed LAQ w/ use of gait belt as needed then use to assist LLE into bed sit> supine, SBA. Pt was modified L sidelying with pillows under RLE behind LLE for comfort. Pt had call light and all needs in reach before left. Father in room. Gait Assessment Gait Gait Assistance Required: Standby Assistance,1 Person Assist Distance (Feet) 110 Able to Maintain Weight Bearing Status Yes During Gait Assistive Devices Assistive Device Gait Belt,Front Wheeled Walker Orthotic/Prosthetic Devices or Brace: No Gait Deviations General Gait Pattern Antalgic,Decreased Stride Length,Decreased Feet Clearance,Step-to Gait Factors Limiting Gait Function Factors Limiting Gait Function Decreased Activity Tolerance, Decreased Sensation,Decreased Strength,Limited Range of Motion,Pain,Poor Balance Comments Gait Comments See mobility comments Stair Climbing Assessment Comments Stair Climbing Comments Did not assess due to pain this tx, already completed 16 stairs CGA am tx. PT-Balance Assessment Sitting Balance and Reactions Static Sitting Balance Ability Normal Dynamic Sitting Balance Ability Normal Standing Balance and Reactions Static Standing Balance Ability Fair Dynamic Standing Balance Ability Fair Device Used FWW M5 PT-IP Objective Assessments Start: 09/05/21 15:22 Freq: NEEDED Status: Active Protocol: Document 09/05/21 13:58 AB (Rec: 09/05/21 15:37 AB [email or web address]) Orientation Orientation/Cognition Level of Alertness Alert Orientation Name,Place,Situation Safety Awareness Decreased Safety Awareness Gross Range of Motion Lower Extremity ROM Impairments L knee flexion: ~ 60 deg L knee extension: ~ 10 deg less to 0 Strength Lower Extremity Strength Assessment Left Impaired Knee 3+/5 Sensation Assessment Sensation Gross Sensation Right LE Impaired,Left LE Impaired Sensation Description Numbness Comments Sensation Comments stated that he has chronic neuropathy on B feet Muscle Tone Muscle Tone WNL Yes M6 PT-IP Treatment Start: 09/05/21 15:22 Freq: NEEDED Status: Active Protocol: Document 09/06/21 13:52 SP (Rec: 09/06/21 15:16 SP [id number]) Physical Therapy Treatment Exercises Exercises Ankle Pumps,Quad Sets,Heel Slides,Seated Knee Flexion/ Extension Knee ROM Measurement 70 deg Education Education Provided Precautions,Weight Bearing Status,Post-Op Packet,Safety Other Treatments Other Treatment Performed Educated importance of L knee extension propped up on pillow supine, in front on elevated surface for ROM extension gains dut to noted flexion at rest, not measured approx 7- 70 deg AAROM, improved extension foot propped up on pillow 4-5 deg extension. M7 PT-IP Assessment and Plan Start: 09/05/21 15:22 Freq: NEEDED Status: Active Protocol: Document 09/06/21 13:52 SP (Rec: 09/06/21 15:16 SP [id number]) PT Summary Assessment and Plan Potential Rehabilitation Potential Good Status of Condition at Evaluation Evolving Summary Impairments Pain,ROM,Strength,Balance, Coordination,Sensation,Tone, Cognition,Bed Mobility, Transfers,Gait,Activity Tolerance Progress Towards Goals Progressing Toward Goals,Slow Progress due to Pain,Slow Progress due to Activity Tolerance Assessment Summary Pt required SBA during all mobility w/ use of gait belt for LE repositioing and FWW in standing. Pt's pain continues to be uncontrolled 8/10 premedicated. Pt reported when looking at his phone eyes take time to adjust for clarity when turns head, notified nursing. Pt will get more skid caps for back legs of FWW to allow decreased resistance of personal FWW. Pt is ok to return home with father to assist him when medically cleared. FURNITURE CLEANER recommending HHPT for improved strengthening and functional mobiltiy due to pain and increased effort gait in room this tx. Goals Bed Mobility Goal Independent Transfer Goal Independent,Front Wheeled Walker Gait Goal Independent,Front Wheel Walker Gait Distance 150 Other Goals up/down 8+8 steps L rail ascending SBA Days to Meet Goals 5 Frequency of Treatment Frequency Of Treatment Twice a Day Treatment Plan Physical Therapy Treatment Plan Bed Mobility Training,Transfer Training,Gait Training, Therapeutic Exercise,Balance Retraining,Post Op Education, Discharge Planning,Hot or Cold Pack,Neuromuscular Re-ed, Coordination Retraining,Manual Therapy Other Recommendations and Next Treatment ambulation further distance, Focus LE exercises Precautions Other Precautions LLE WBAT Recommendations To Nursing Amount of Assist Needed Standby Assistance,1 Person Assist Discharge Recommendations PT Discharge Recommendations Home with Assistance,Home Health Transportation Needs at Discharge Private Vehicle
[2021-09-06] MEDS: ACETAMINOPHEN 325 MG TABLET 650 MG PO ×2 (14:51→21:20)
--- NOTE | 2021-09-06 18:19 | PC.NURSE ---
Pt didn't go home today due to problems getting his narcotics prescription on time. AC Mohamud aware, Pt No longer has IV access due to being discontinue earlier due to the probability of being discharge earlier today. Pt has states he normally gets his prescriptions at [facility] in [place] . Evening cnc machinist 2nd shift aware that patient is not being discharge today.
[2021-09-06] MEDS: INSULIN GLARGINE 100 UNIT/ML 3ML PEN 35 UNIT SUBCUT (21:16)
[2021-09-06] MEDS: AMLODIPINE 5 MG TABLET 10 MG PO (21:21)
--- NOTE | 2021-09-07 00:14 | PC.NURSE ---
Patient is alert and oriented but expressing anxiety regarding getting prescriptions written/filled in a.m. prior to discharge. Breath sounds CTA with late expiratory wheeze in left LL; RA sat is 94%. HRR but tachy at 106 bpm and BP elevated at 147/87 consistent with previous readings. Denies nausea. BT hypoactive but is passing flatus. Is voiding per urinal; states he has frequency but denies dysuria. Is able to turn himself in bed. Up to bathroom with walker and SBA. Complains of 6/10 pain in left knee mostly behind knee radiating into thigh and buttock; medicated per [facility] with Dilaudid and ice applied. Aquacel dressing is intact with drainage noted at distal end. Left knee is swollen. Chronic bilateral foot neuropathy but states left is a little more numb than prior to surgery but feels it is exacerbated by use of SCD's so declines to wear; reminded to ankle wave. Left pedal pulse is palpable but weaker than right. Still unable to lift left leg off bed. Fall risk score is high and bed alarm is activated.
[2021-09-07] MEDS: diphenhydrAMINE 25 MG TABLET PO ×2 (00:42→08:24)
[2021-09-07] MEDS: IBUPROFEN 400 MG TABLET PO ×3 (00:43→08:10)
[2021-09-07] MEDS: OXYCODONE IR 5 MG TABLET 10 MG PO ×4 (00:43→11:08)
[2021-09-07 03:59] VITALS: BP 146/91; PULSE 95; RESP 16; TEMP 36.2; O2SAT 97
[2021-09-07] MEDS: polyethylene glycoL 3350 17 GM POWD.PACK PO (06:13)
--- NOTE | 2021-09-07 07:48 | PC.NURSE ---
Addendum entered by Randa Perez R.N. 09/07/21 11:38: Patient's dressing changed by PA, patient tolerated. LLE wrapped with ANGIE wrap, patient tolerated. Given discharge instructions regarding f/u appointment, medications, home safety and s/s of infection including fever, night sweats, increasing warmth, redness, swelling or change in drainage. Patient verbalized understanding. Patient's belongings gathered, denied belongings in safe or pharmacy. Patient discharged via wheelchair with aide assist. Original Note: Patient up to chair. Lungs CTA, HRR, VSS, LLE swollen, dsg saturated, jerry-wound is warm to touch, edematous, 2+ pitting, DP pulse present, faint. Patient ambulating to restroom with FWW, voiding without complication, flatus present, BT active x 4. Pt denies chest pain, SOB, dizziness or lightheadedness. Call light in reach. LLE elevated, ice pack applied.
[2021-09-07 08:00] VITALS: BP 131/88; PULSE 87; RESP 18; TEMP 36.8; O2SAT 96
[2021-09-07] MEDS: DOCUSATE 100 MG CAPSULE PO (08:06)
[2021-09-07] MEDS: ASPIRIN EC 81 MG TABLET PO (08:06)
[2021-09-07] MEDS: ACETAMINOPHEN 325 MG TABLET 650 MG PO (08:06)
[2021-09-07] MEDS: PREGABALIN 50 MG CAPSULE 200 MG PO (08:07)
[2021-09-07] MEDS: METFORMIN HCL 500 MG TABLET 1000 MG PO (08:07)
--- NOTE | 2021-09-07 09:31 | PT.IPTN ---
Current Diagnoses Unilateral primary osteoarthritis, left knee (09/07/21) Surgery Performed Operation Date: 09/05/21 07:45 Actual Procedures p Total Knee Arthroplasty(Left) - Venice Weir MD Physical Therapy Treatment Note M2 PT-IP Current Condition Start: 09/05/21 15:22 Freq: NEEDED Status: Active Protocol: Document 09/05/21 13:58 AB (Rec: 09/05/21 15:37 AB [email or web address]) Physical Therapy Current Condition Current Condition Evaluation Date 09/05/21 Treatment Diagnosis s/p L TKA; difficulty in walking Onset Date 09/05/21 Weight Bearing Status Weight Bearing Status Weight Bear as Tolerated Allowed Weight Bearing Amount (enter % LLE WBAT or #) (%) M3 PT-IP Subjective Start: 09/05/21 15:22 Freq: NEEDED Status: Active Protocol: Document 09/07/21 09:14 SP (Rec: 09/07/21 11:46 SP [id number]) Subjective Physical Therapy Visit Type Type Treatment Note Visit Start Time 09:14 Visit Stop Time 09:31 Total Visit Minutes 17 Notes Father in room, provided SBA as needed throughout tx. Number of EMBOSSER APPRENTICE Visits 3 Physical Therapy Visit Comments Patient Comments Pt agreeable to working with therapy. Pt states concerned with increased swelling R knee , warmth and redness in L calf today worsening from yesterday. Pain more controlled 5/10 down to using 1 pain med to help. Patient Goals return home with father to assist hime as needed, HHPT perferred Therapy Pain Assessment Pain When Pain Assessed At Rest Pain Present Pain Present Pain Reported Location Left Knee Intensity 5 Scale Used Numeric (0 - 10) Description Aching,Pressure,Tightness,With Movement Pain Behaviors Facial Grimacing Pain Management Techniques Apply Cold,Elevation,Re- positioning,Timing of Activity with Medications M4 PT-IP Mobility and Gait Start: 09/05/21 15:22 Freq: NEEDED Status: Active Protocol: Document 09/07/21 09:14 SP (Rec: 09/07/21 11:46 SP [id number]) PT-Transfer Assessment Sit to and From Stand Sit to and from Stand Independent,Use of Upper Extremities Equipment Transfer Assistive Device Gait Belt,Front Wheeled Walker Orthotic/Prosthetic Devices or Brace: No Transfers Transfer Destination Chair Transfer Technique ambulated using FWW Transfer Ability Level of Assist Standby Assistance,Use of Upper Extremities Comments Mobility Comments Pt in bathroom standing w/ use of FWW for self support, able to void, father outside bathrooom provided SBA when arrived. Pt returned to chair SBA with use of BUEs for slow descent SBA- Mod I. EMBOSSER APPRENTICE noted L knee/ calf dressing saturated, jerry-wound and calf is warm to touch, edematous, 2+ pitting. Pt wanting to perform mobility for ROM some but cautious of increased swelling in L k nee and calf with increased bleeding on dressing, waiting to see PA for further assessment. Sit<> stand SBA-Mod I use of UEs and FWW, ambulated approx 110 [address] into hallway to stairs and back, using FWW SBA with improved L quad facilitation during RLE swing t through, min- mod UE WB on FWW. completed stair mgt BHR intial set then L HR 2nd set with improved LLE stability. Pt returned to chair. discussed post op exercises but not performed for safety of swelling and redness until assess with PA. Pt states pain more controlled today 04/10. Pt seated in chair with call light and all needs in reach. EMBOSSER APPRENTICE spoke with nurse and asked when PA maybe in to see pt. Nurse stated PA doing rounds now and will be soon. EMBOSSER APPRENTICE notified pt and gave more relief. Gait Assessment Gait Gait Assistance Required: Standby Assistance Distance (Feet) 110 Able to Maintain Weight Bearing Status Yes During Gait Assistive Devices Assistive Device Gait Belt,Front Wheeled Walker Orthotic/Prosthetic Devices or Brace: No Gait Deviations General Gait Pattern Antalgic,Decreased Stride Length,Decreased Feet Clearance Factors Limiting Gait Function Factors Limiting Gait Function Decreased Activity Tolerance, Decreased Strength,Limited Range of Motion,Pain Comments Gait Comments see mobility comments Stair Climbing Assessment Evaluation Level of Assist On Stairs Standby Assistance Devices Stair Climbing Assistive Devices Left Railing Technique/Endurance Stair Climbing Direction Ascend and Descend Stair Climbing Technique Step to Step Number of Steps Climbed 3 Stair Climbing Set # Repetitions (reps) 2 Comments Stair Climbing Comments see mobility comments PT-Balance Assessment Sitting Balance and Reactions Static Sitting Balance Ability Normal Dynamic Sitting Balance Ability Normal Standing Balance and Reactions Static Standing Balance Ability Good Dynamic Standing Balance Ability Good Device Used FWW M5 PT-IP Objective Assessments Start: 09/05/21 15:22 Freq: NEEDED Status: Active Protocol: Document 09/05/21 13:58 AB (Rec: 09/05/21 15:37 AB [id number]) Orientation Orientation/Cognition Level of Alertness Alert Orientation Name,Place,Situation Safety Awareness Decreased Safety Awareness Gross Range of Motion Lower Extremity ROM Impairments L knee flexion: ~ 60 deg L knee extension: ~ 10 deg less to 0 Strength Lower Extremity Strength Assessment Left Impaired Knee 3+/5 Sensation Assessment Sensation Gross Sensation Right LE Impaired,Left LE Impaired Sensation Description Numbness Comments Sensation Comments stated that he has chronic neuropathy on B feet Muscle Tone Muscle Tone WNL Yes M6 PT-IP Treatment Start: 09/05/21 15:22 Freq: NEEDED Status: Active Protocol: Document 09/07/21 09:14 SP (Rec: 09/07/21 11:46 SP [id number]) Physical Therapy Treatment Exercises Exercises Ankle Pumps,Quad Sets,Heel Slides,Seated Knee Flexion/ Extension Knee ROM Measurement discussed not performed Education Education Provided Precautions,Weight Bearing Status,Post-Op Packet,Safety Other Treatments Other Treatment Performed Pt states is performing knee extension hangs supine ankle on pillow and propped up in sitting for knee ext ROM. M7 PT-IP Assessment and Plan Start: 09/05/21 15:22 Freq: NEEDED Status: Active Protocol: Document 09/07/21 09:14 SP (Rec: 09/07/21 11:46 SP [id number]) PT Summary Assessment and Plan Potential Rehabilitation Potential Good Status of Condition at Evaluation Evolving Summary Impairments Pain,ROM,Strength,Balance, Coordination,Sensation,Tone, Cognition,Bed Mobility, Transfers,Gait,Activity Tolerance Progress Towards Goals Progressing Toward Goals,Slow Progress due to Pain,Slow Progress due to Medical Issues ,Slow Progress due to Activity Tolerance Assessment Summary Pt I bed mobility, transfers, SBA- Mod I usign fWW gait and stairs 1-2 rails. Pt having increased swelling L knee and redness in L calf and increased wound bleeding, waiting on PA reassessment this am for safe DC home. Pt is ok to return home with father to assist him as needed when medically cleared. Recommending HHPT. Goals Bed Mobility Goal Independent Transfer Goal Independent,Front Wheeled Walker Gait Goal Independent,Front Wheel Walker Gait Distance 150 Other Goals up/down 8+8 steps L rail ascending SBA Days to Meet Goals 5 Frequency of Treatment Frequency Of Treatment Twice a Day Treatment Plan Physical Therapy Treatment Plan Bed Mobility Training,Transfer Training,Gait Training, Therapeutic Exercise,Balance Retraining,Post Op Education, Discharge Planning,Hot or Cold Pack,Neuromuscular Re-ed, Coordination Retraining,Manual Therapy Other Recommendations and Next Treatment ambulation further distance, Focus LE exercises Precautions Other Precautions LLE WBAT Recommendations To Nursing Amount of Assist Needed Standby Assistance Discharge Recommendations PT Discharge Recommendations Home with Assistance,Home Health Transportation Needs at Discharge Private Vehicle
--- NOTE | 2021-09-07 10:00 | DI.US.S_ITS ---
PROCEDURE: US PERIPH VENOUS LOW EXTREM LT INDICATIONS: SWELLING AND REDNESS. STATUS POST TOTAL KNEE REPLACEMENT. TECHNIQUE: Real-time imaging, as well as color and pulse Doppler interrogation, were performed of the lower extremity deep veins from the inguinal ligament to the popliteal fossa. COMPARISON: None. FINDINGS: The common femoral, femoral and popliteal veins are normally compressible, and free of intraluminal thrombus. Color and pulse Doppler demonstrate normal phasic intraluminal flow. There is normal augmentation response to distal compression maneuver. IMPRESSION: No evidence of DVT in visualized left lower extremity veins. Dictated by: Bj Velasco M.D. on 09/07/2021 at 10:42 Approved by: Bj Velasco M.D. on 09/07/2021 at 10:51
--- NOTE | 2021-09-07 10:22 | PM.DS.1 ---
History of Present Illness History of Present Illness Chief complaint: Left knee pain status post left TKA Narrative: The patient is complaining of moderate pain this morning. He has been using Dilaudid and Oxy in addition to OTC Tylenol and ibuprofen for pain. He denies fevers, chills, night sweats. No new numbness or tingling, other than than his baseline peripheral neuropathy, which is worse in the left as compared to the right. The main concern is left lower extremity swelling. The patient does know he has a history of MRSA from a spider bite in that leg several years ago. Discharge Providers Provider Date of admission: 09/07/21 09:01 Discharge Date: 09/07/21 Consults: 09/05/21 06:34 Consult to Anesthesiology Routine Comment: Consulting Provider: Anesthesiologist Reason for consultation: Regional block for post operative pain control 09/05/21 07:17 Consult to Respiratory Therapy Evaluate & Treat Comment: Physician Instructions: Evaluate and treat 09/05/21 12:35 Consult to Discharge Planning Routine Comment: Consult to Physical Therapy Evaluate & Treat Comment: Physician Instructions: postop TKA protocol Consult to Respiratory Therapy Evaluate & Treat Comment: Physician Instructions: Evaluate and treat 09/06/21 12:48 Consult to Home Health Routine Comment: LTKA Reason For Exam: Set up HH RN/PT/OT/CERTIFICATION TECHNICIAN for d/c home Discharge provider: Oneida Pratt PA-C Summary Hospital Course Discharge Diagnosis: Left knee posttraumatic arthritis Hospital Course: Procedure: Left total knee arthroplasty Same procedure as scheduled: Yes Indications: The patient has had progressively worsening left knee pain with radiographic changes consistent with arthritis. Non-operative management has failed and the patient has requested total knee replacement. The risks, benefits and alternatives to surgery were discussed with the patient prior to proceeding. Risks discussed included, but were not limited to, failure to relieve pain, stiffness, infection, nerve damage, deep venous thrombosis, pulmonary embolism, stroke, coma, heart attack, permanent paralysis and , as well as the potential need for eventual revision of the prosthetic. Surgeon: Venice Weir Casting Trucker: Oneida Pratt Anesthesia Type: General and Spinal Operative Notes Findings: Severe left knee medial compartment osteoarthritis, good bone and adequate stability Closure Type: primary Specimen(s): none sent Prosthetic devices, grafts, tissues, transplants, or devices: [employer] BCS 2 size 7 femur, size 6 tibia, +9 poly, 41 mm patella Estimated Blood Loss (mL): 250 Blood products transfused: none Tourniquet time (min): 35 The patient was planning on discharging home yesterday, however he had some pain control issues and therefore stayed an additional night. Exam Vital Signs (past 8 hours): - 09/07/21 03:59 09/07/21 08:00 Temperature 97.2 F L 98.2 F Pulse Rate 95 H 87 Respiratory Rate 16 18 Blood Pressure 146/91 H 131/88 Pulse Oximetry 97 96 Oxygen Delivery Method Room Air,CPAP Oxygen Flow Rate 0 Narrative Exam Narrative: Pleasant 56-year-old male, resting comfortably in his chair, no acute distress. His left lower extremity demonstrates edema and mild erythema, actually most consistent with venous stasis changes. His dressing is also completely saturated in the lower half. The dressing was removed today and there was mild, pinpoint bleeding the distal end. A new bandage was applied with gauze on the distal aspect of the incision for reinforcement. Bilateral lower extremity motor functions are intact. Bilateral lower extremities sensation is intact to light touch. Left calf is mildly taut and mildly tender to palpation. Objective Labs Result Diagrams: 09/06/21 05:13 [facility], [facility] Medical History Anxiety Asthma Atrial flutter Depression Diabetes Diabetic neuropathy Diverticulosis Elevated cholesterol Gout HTN (hypertension) SOFÍA on CPAP Osteoarthritis Surgical History H/O cardiac radiofrequency ablation (06/13/21) Hx of arthroscopy of left knee Hx of arthroscopy of right knee Hx of arthroscopy of shoulder S/p bilateral carpal tunnel release S/P cubital tunnel release Social History household members: none Smoking Status: Former smoker alcohol intake: former Discharge Assessment & Plan Assessment and Plan Assessment: Stable status post left total knee arthroplasty Plan of Treatment: -urgent ultrasound today to rule out a DVT in the left lower extremity -continue with pain control -bandage change, we will reinforce with an Jose wrap an ABD once he has had his ultrasound -DC home today with a negative ultrasound and cleared by PT. Discharge Plan Discharge Plan Patient Disposition: Home Discharge orders & Medications Prescriptions: New acetaminophen 500 mg capsule 500 mg PO Q4H MDD Max 6 tabs per day PRN (Reason: pain) Qty: 90 RF: 0 aspirin 81 mg Tablet,Delayed Release (Dr/Ec) 81 mg PO BID PRN (Reason: X6 weeks to prevent blood clots) Qty: 90 RF: 0 docusate sodium 100 mg Capsule 100 mg PO BID PRN (Reason: constipation) Qty: 20 RF: 0 hydrocodone-acetaminophen 5-325 mg Tablet See Rx Instructions .ROUTE .COMPLEX MDD Max acetaminophen 3000 mg/day PRN (Reason: Pain, Severe (7-10)) Qty: 42 RF: 0 hydromorphone 2 mg Tablet 2 mg PO Q4H PRN (Reason: Pain, Severe (7-10)) Qty: 42 RF: 0 ibuprofen 400 mg Tablet 400 mg PO Q4HR MDD Max 6 tabs per day PRN (Reason: Pain/inflammation) Qty: 90 RF: 0 oxycodone 5 mg Tablet See Rx Instructions .ROUTE .COMPLEX PRN (Reason: Pain, Severe (7-10)) Qty: 42 RF: 0 diphenhydramine HCl [Allergy (diphenhydramine)] 25 mg Tablet 25 mg PO Q6HR PRN (Reason: Itching with oxycodone) Qty: 30 RF: 0 Continued metformin 1,000 mg Tablet 1,000 mg PO BID RF: 0 albuterol sulfate 90 mcg/actuation Hfa Aerosol Inhaler 2 puff INHALATION Q6H PRN (Reason: Shortness Of Breath) RF: 0 pregabalin 200 mg Capsule 200 mg PO TID RF: 0 amlodipine-benazepril 10-40 mg Capsule 1 cap PO BEDTIME RF: 0 Lantus Solostar U-100 Insulin 100 unit/mL (3 mL) Insulin Pen 35 unit SUBCUT BEDTIME RF: 0 Discontinued acetaminophen 500 mg Tablet 1,000 mg PO QD-BID PRN (Reason: Pain) RF: 0 Medication counseling provided by Pharmacist: Yes Follow up/Referrals: Venice Weir MD [Physician] - (10-14 days for postoperative visit) Diet/Activity/Treatments Diet: Diet as Tolerated and Regular Activity: -weight-bearing as tolerated with front wheel walker -continue with home exercises as directed by your physical therapist -elevate toes above the nose to help control swelling; 30 minutes-1 hour, 3-5 times per day Cold/Heat Therapy: -use ice as needed for pain Other treatments: -aspirin 81 mg twice daily x6 weeks to prevent blood clots -use Tylenol and ibuprofen every 4 hours for pain -Use oxycodone 5 mg 1-2 tablets for [id number] pain -Dilaudid 2 mg every 4 hours as needed for moderate to severe pain -use OTC constipation meds as needed with narcotic pain meds -max Tylenol (acetaminophen) 3000 mg per day from all sources, Tylenol OTC and 325 mg in [place] Skin/Wound/Dressing Care Report to your healthcare provider any signs of infection, such as:: chills, fever, night sweats, unusual drainage and unusual redness Dressing: -okay to remove Jose wrap after 48 hours from surgery -okay to shower after Jose wrap firs removed -keep dressing in place until postoperative visit -contact the office if his dressing becomes wet, soiled, saturated Visit Report/Discharge Packet Instructions: DI for Knee Replacement, Oxycodone Stand Alone Forms: Surgery Discharge Discharge Data Attending Provider: Venice Weir VTE Deep Vein Thrombosis/Pulmonary Embolism Present on Admission: No
--- NOTE | 2021-09-07 10:51 | CM.DPC ---
DCP Cont: Patient is to be discharged home with [facility]. This is an L&I injury, so [place] has been working on authorization for patient. Was able to get in touch with Allison at [facility]. She is working on authorization, and stated, it should not be a problem. Let her know that patient is discharging home today. Faxed over face to face, orders, DC Summary, as well as copy of vaccination card for COVID. Patient is requesting nursing, P.T, O.T, as well as a bath aide. P: Patient is going home with [facility]. They are working on obtaining an authorization. Erica Montenegro RN/[employer]
== END 2021-09-07 12:25 | disposition home or self-care (01) ==
LOC: OR 09:14 → AC 09:14
PROVIDERS: Admitting Provider Orthopaedic Surgery; Referring Provider Orthopaedic Surgery; Visit Provider Orthopaedic Surgery
PROC: 0SRD0JZ Replacement of Left Knee Joint with Synthetic Substitute, Open Approach (ICD-10-PCS; CPT 27447; principal; 2021-09-05 07:45)
DX: M17.12 Unilateral primary osteoarthritis, left knee (principal); E66.01 Morbid (severe) obesity due to excess calories; Z68.41 Body mass index [BMI] 40.0-44.9, adult; G47.33 Obstructive sleep apnea (adult) (pediatric); F41.9 Anxiety disorder, unspecified; J45.909 Unspecified asthma, uncomplicated; I10 Essential (primary) hypertension; E11.42 Type 2 diabetes mellitus with diabetic polyneuropathy; Z79.84 Long term (current) use of oral hypoglycemic drugs; Z79.4 Long term (current) use of insulin
CPT/HCPCS: 27447; 36415; 73560; 82962; 85014; 85018; 93971; 94760; 97110; 97116; 97162; 97530; C1776; G0378; C9290; J0171; J0690; J1170; J2405; J2704; J3010